=== PATIENT | male | born 1950 | race Caucasian/White ===

== ENCOUNTER 2018-07-18 05:26 | Inpatient (IN) | payer OTHER ==
[2018-07-03 12:44] LABS: HEMATOCRIT 44.2 % (42.0-52.0); HEMOGLOBIN 15.6 gm/dL (14.0-18.0); MCH 30.3 pg (26.0-34.0); MCHC 35.3 g/dL (28.0-37.0); MCV 85.8 fL (80.0-100.0); RBC 5.15 mil/uL (4.50-6.00); WBC 7.4 thou/uL (4.0-11.0)
[2018-07-03 12:45] LABS: URINE BILIRUBIN NEGATIVE (Negative); URINE BLOOD 1+ (Negative); URINE CLARITY CLEAR; URINE COLOR YELLOW; URINE GLUCOSE-RANDOM* NEGATIVE (Negative); URINE KETONES NEGATIVE (Negative); URINE LEUKOCYTES-REFLEX NEGATIVE (Negative); URINE NITRITE-REFLEX NEGATIVE (Negative); URINE PROTEIN (DIPSTICK) 1+ (Negative); URINE SPECIFIC GRAVITY >= 1.030 (1.005-1.035); URINE UROBILINOGEN 0.2 E.U./dl (0.2-1.0)
[2018-07-03 12:58] LABS: PROTIME 10.7 Seconds (9.3-11.4)
[2018-07-03 13:04] LABS: BACTERIA-REFLEX 1-9 Few /HPF (None Seen); CASTS None Seen /LPF (None Seen); CRYSTALS None Seen /LPF (None Seen); SQUAMOUS 0-3 Few /LPF (0-3); URINE RBC None Seen /HPF (0-2); URINE WBC-REFLEX None Seen /HPF (0-5)
[2018-07-03 13:05] LABS: ALBUMIN 4.2 g/dL (3.4-5.0); CALCIUM 9.9 mg/dL (8.5-10.1); CREATININE 1.5 mg/dL (0.7-1.3); POTASSIUM 4.2 mmol/L (3.5-5.1); TOTAL BILIRUBIN 1.4 mg/dL (<0.1-1.0); TOTAL PROTEIN 7.7 g/dL (6.4-8.2)
[2018-07-04 03:10] LABS: GLYCOHEMOGLOBIN (HGB A1C) 7.9 % (4.8-5.6)
[~2018-07-18] VITALS: Ht 175.3 cm; Wt 99.3 kg
[2018-07-18] VITALS (7 sets, daily range): BP systolic 118–158; BP diastolic 63–77
--- NOTE | ~2018-07-18 | O ---
[facility] [place] [address] OPERATIVE REPORT Name: FERNANDA SALTER Room #: 462-P ADM IN M.R.#: [id number] Admission: 07/18/18 Attend Phys: Sloan Taylor MD Discharge: Date of : 52 Report #: [id number] THIS REPORT FOR: //name// CC: Sloan Souza DATE OF SERVICE: 07/18/2018 PREOPERATIVE DIAGNOSIS: Right knee osteoarthritis. POSTOPERATIVE DIAGNOSIS: Right knee osteoarthritis. PROCEDURE: Right total knee arthroplasty with Navio assist. SURGEON: Sloan Taylor M.D. ANESTHESIA: LMA with an adductor canal block. IMPLANTS: Quesada and Nephew size 7 Legion cobalt chrome posterior stabilized femur, size 6 tibia, size 10 polyethylene and size 38 patella. TOURNIQUET TIME: 63 minutes. ESTIMATED BLOOD LOSS: 25 mL. COMPLICATIONS: None. SPECIMENS: None. CONDITION UPON LEAVING THE OPERATING ROOM: Stable. INDICATIONS FOR PROCEDURE: The patient is a 67-year-old gentleman with severe right knee osteoarthritis. He had failed conservative measures for this and after discussion with him, he elected for right total knee arthroplasty. DESCRIPTION OF PROCEDURE: Risks, benefits, alternatives and complications were discussed in detail with the patient, including but not limited to risk of anesthesia; risk of damage to nerves, arteries, blood vessels; risk for infection, bleeding; risk for continued knee pain and need for reoperation. Informed consent was obtained from the patient. Right knee was appropriately marked in the preoperative holding area. IV Ancef was given for preoperative antibiotics. Adductor canal block was placed by anesthesia. He was brought to the operating room and placed in the supine position on the operating room table. LMA anesthesia was induced without complication. Tourniquet was placed on the right thigh. Right lower extremity was prepped and [facility] [address] [place] [address] OPERATIVE REPORT Name: FERNANDA SALTER Room #: 462-P [facility] IN M.R.#: [id number] Admission: 07/18/18 Attend Phys: Sloan Taylor MD Discharge: Date of : 51 Report #: [id number] draped in normal sterile fashion. Timeout was performed, properly identifying the patient and procedure as well as the instrumentation and implants. All in the operating room were in agreement. Right lower extremity was exsanguinated, tourniquet was inflated. Tourniquet time was 63 minutes. Standard midline approach to the knee was made with 10 blade through the skin. Dissection was taken down sharply to the fascia and deep flaps were developed medially and laterally. Fresh 10 blade was used to make a medial parapatellar arthrotomy and the knee was inspected. There was severe tricompartmental osteoarthritis with chondrocalcinosis of the medial and lateral meniscus. Anterior horns of the meniscus removed sharply. ACL and PCL were removed sharply. Reference pins were placed in the femur and tibia for the Navio system and the knee was then mapped digitally using the Navio system. We sized a size 7 femur and a size 6 tibia and after acceptance of the intraoperative plan, we proceeded to perform the distal femoral cut using the Navio bur. After this, a size 7, 4-in-1 cutting block was placed. Anterior, posterior and chamfer cuts were made on the femur. The knee was then hyperflexed. Tibia was subluxed anteriorly. Remainder of the menisci removed with Bovie cautery and the tibial resection guide was pinned in place using the Navio physical therapist assistant navigation for placement of the tibial resection guide. Tibial resection was made. After this, flexion and extension gaps were checked and found to have good balance in flexion and extension both medially and laterally. Tibia was sized and found to be a size 6. A size 6 tibial trial was placed and pinned and punched. A size 7 femoral trial was placed and the box cut was made. This was then trialed with a size 9 and then size 10 polyethylene. The size 10 had better balance throughout range of motion based on the Navio digital information as well as manually. A 9 mm was taken off the posterior surface of the patella and a size 38 patellar trial button was placed. Knee was taken through range of motion, found to be stable, found to have good patellar tracking and balance. Trial components were removed. Bone ends were thoroughly irrigated with normal saline. A final size 6 tibia, size 7 Legion cobalt chrome posterior stabilized femur and a size 38 patella were cemented in place using standard cementation techniques. While the cement cured, a fredo-articular injection consisting of morphine, ropivacaine, epinephrine and Toradol was placed in the knee joint tissues. After the cement cured, the tourniquet was deflated. Hemostasis was obtained with Bovie cautery. A final size 10 polyethylene was placed. A gram of vancomycin was placed deep in the joint. Fascia was closed with 0 Vicryl, skin was closed with 2-0 Vicryl and 3-0 Monocryl. Dermabond and a YANETH dressing were applied. The patient tolerated this procedure well and went to the recovery room under the care of anesthesia postoperatively. <ELECTRONICALLY SIGNED> By: Sloan Taylor MD 07/19/18 1306 1202 1237 Sloan Taylor MD /nt
--- NOTE | ~2018-07-18 | EKG ---
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
[~2018-07-18 05:26] MED LIST: ADULT LOW DOSE81 MG PO; ASPIR 8181 MG PO; ASPIRIN EC325 M1 PO; ASPIRIN EC81 M1 PO; ASPIRIN325 PO; ASPIRIN81 M2 PO; AUGMENTIN 875875 MG PO; CARDIZEM CD120 MG PO; CARVEDILOL12.5 MG PO; CARVEDILOL25 MG PO; CLONIDINE PO; CO Q-10100 M1 PO; COLACE100 MG PO; COREG25 MG PO; CRESTOR10 MG PO; CRESTOR20 MG PO; CYCLOBENZAPRINE5 MG PO; EFFIENT10 MG PO; GLUCOTROL5 MG PO; HYDROCODON-ACE1 EAC7 PO; HYDROCODONE-AP1 EACH PO; IMDUR 30 MG TAB30 M1 PO; IMDUR 60 MG TAB60 M1 PO; JANUVIA50 MG PO; LEXAPRO 10 MG T10 M1 PO; LEXAPRO 10 MG T10 M2 PO; LIDODERM 5%1 PATCH TOP; LIPITOR80 MG PO; LISINOPRIL-HCT1 EAC1 PO; LISINOPRIL-HCT1 EAC2 PO; LISINOPRIL2.5 MG PO; LISINOPRIL20 MG PO; LOPERAMIDE 2 MG2 MG; METOPROLOL 100100 MG PO; MIRALAX255 GM PO; MOBIC15 MG PO; MYRBETRIQ50 MG PO; NIACOR500 MG PO; NITROGLYCERIN0.4 MG SL; NITROGLYCERIN0.4 MG SUBLING; NORCO 5-325 TA1 EACH PO; NORVASC 5 MG TAB5 MG PO; NORVASC5 MG PO; OXYCODONE HCL 55 MG PO; PERCOCET 5-3251 EACH PO; PHISOHEX148 ML TP; SIMVASTATIN80 MG PO; TYLENOL325 MG PO; ULTRAM 50MG TAB50 MG PO; VENTOLIN HFA INH8 GM INH; WELCHOL 625 MG625 MG PO; ZOFRAN ODT4 MG PO
[2018-07-19 04:53] LABS: HEMATOCRIT 36.5 % (42.0-52.0); HEMOGLOBIN 12.3 gm/dL (14.0-18.0); MCH 29.4 pg (26.0-34.0); MCHC 33.6 g/dL (28.0-37.0); MCV 87.6 fL (80.0-100.0); RBC 4.17 mil/uL (4.50-6.00); WBC 8.6 thou/uL (4.0-11.0)
[2018-07-19 07:39] VITALS: BP 105/58
[2018-07-19] MEDS ORDERED: TRI-BUFFERED A325 M1 PO (10:16)
[2018-07-19] MEDS ORDERED: NEURONTIN 300300 M1 PO (10:16)
[2018-07-19 16:31] VITALS: BP 113/60
[2018-07-19 20:00] VITALS: BP 138/73
[2018-07-20 06:58] LABS: HEMATOCRIT 38.5 % (42.0-52.0); HEMOGLOBIN 13.2 gm/dL (14.0-18.0); MCHC 34.3 g/dL (28.0-37.0); MCV 87.4 fL (80.0-100.0); RBC 4.41 mil/uL (4.50-6.00); RDW 14.7 % (10.5-14.5); WBC 10.2 thou/uL (4.0-11.0)
[2018-07-20 07:45] VITALS: BP 165/77
[2018-07-20 10:08] LABS: CALCIUM 8.9 mg/dL (8.5-10.1); CREATININE 1.6 mg/dL (0.7-1.3); MAGNESIUM 1.9 mg/dL (1.8-2.4); POTASSIUM 4.7 mmol/L (3.5-5.1)
[2018-07-20 16:50] VITALS: BP 107/50
[2018-07-20 19:52] VITALS: BP 104/49
[2018-07-21 06:34] LABS: HEMOGLOBIN 12.1 gm/dL (14.0-18.0); MCH 30.2 pg (26.0-34.0); MCHC 34.5 g/dL (28.0-37.0); MCV 87.6 fL (80.0-100.0); RBC 3.99 mil/uL (4.50-6.00); RDW 14.9 % (10.5-14.5); WBC 8.1 thou/uL (4.0-11.0)
[2018-07-21 06:47] LABS: CALCIUM 9.1 mg/dL (8.5-10.1); CREATININE 1.8 mg/dL (0.7-1.3); MAGNESIUM 2.1 mg/dL (1.8-2.4); POTASSIUM 4.4 mmol/L (3.5-5.1)
[2018-07-21 07:55] VITALS: BP 130/77
[2018-07-21 10:43] VITALS: BP 130/77
[2018-07-21 19:44] VITALS: BP 127/72
[2018-07-22 01:13] VITALS: BP 127/72
[2018-07-22 05:29] LABS: HEMATOCRIT 32.9 % (42.0-52.0); HEMOGLOBIN 11.7 gm/dL (14.0-18.0); MCH 30.7 pg (26.0-34.0); MCHC 35.5 g/dL (28.0-37.0); MCV 86.4 fL (80.0-100.0); RBC 3.81 mil/uL (4.50-6.00); RDW 14.1 % (10.5-14.5); WBC 7.8 thou/uL (4.0-11.0)
[2018-07-22 05:43] LABS: CALCIUM 8.8 mg/dL (8.5-10.1); CREATININE 1.6 mg/dL (0.7-1.3); MAGNESIUM 2.1 mg/dL (1.8-2.4); POTASSIUM 4.2 mmol/L (3.5-5.1)
[2018-07-22 08:08] VITALS: BP 139/72
[2018-07-22] MEDS ORDERED: VISTARIL 25 MG25 M1 PO (15:12)
== END 2018-07-22 15:40 | DRG 469 ==
LOC: 4W 05:26 → TBA 05:26 → PRE 05:38 → 4W 18:03
PROVIDERS: Internal Medicine; Orthopaedic Surgery
PROC: 0SRC0J9 Replacement of Right Knee Joint with Synthetic Substitute, Cemented, Open Approach (ICD-10-PCS; principal; 2018-07-18)
DX: M17.11 Unilateral primary osteoarthritis, right knee (principal); N17.0 Acute kidney failure with tubular necrosis; F32.9 Major depressive disorder, single episode, unspecified; N18.3 Chronic kidney disease, stage 3 (moderate); I12.9 Hypertensive chronic kidney disease with stage 1 through stage 4 chronic kidney disease, or unspecified chronic kidney disease; E11.22 Type 2 diabetes mellitus with diabetic chronic kidney disease; K59.00 Constipation, unspecified; E78.5 Hyperlipidemia, unspecified; Z79.82 Long term (current) use of aspirin; Z28.21 Immunization not carried out because of patient refusal; Z79.899 Other long term (current) drug therapy; Z88.2 Allergy status to sulfonamides; Z88.8 Allergy status to other drugs, medicaments and biological substances; Z82.49 Family history of ischemic heart disease and other diseases of the circulatory system; Z80.42 Family history of malignant neoplasm of prostate; Z83.3 Family history of diabetes mellitus
CPT/HCPCS: 10047; 50010; 50101; 50415; 50954; 51130; 51225; 51771; 53000; 53078; 53364; 54118; 56527; 56528; 57095; 57103; 57109; 57110; 57113; 57127; 57180; 62110; 62900; 70005

== ENCOUNTER 2018-08-23 13:03 | Emergency (ER) | payer OTHER ==
[~2018-08-23] VITALS: Ht 175.3 cm; Wt 79.4 kg
--- NOTE | ~2018-08-23 | EKG ---
[address] [address] ELECTROCARDIOGRAM REPORT Name: FERNANDA SALTER Room #: DEP Jenna#: [id number] Admission: 08/23/18 Attend Phys: Discharge: 08/23/18 Date of : 52 Report #: [id number] THIS REPORT FOR: //name// [facility] ED Test Date: 2018-08-23 Test Time: 13:18:07 Pat Name: FERNANDA SALTER Department: Room: Gender: Exhaust Tender: : 1950 Requested By: Samaria Hyman Order Number: [id number] MD: Michael Harris Measurements Intervals [place] Rate: 57 P: NM: QRS: 22 QRSD: 94 T: 210 QT: 448 QTc: 437 Interpretive Statements Sinus rhythm First degree AV block Electronically Signed On 08-25-2018 20:17:54 CATERING STAFF MEMBER by Michael Harris [email or web address] <ELECTRONICALLY SIGNED> By: Michael Harris MD 08/25/182016 1318 1318 Michael Harris MD /EPI
[~2018-08-23 13:03] MED LIST changes: +NEURONTIN 300300 M1 PO; +TRI-BUFFERED A325 M1 PO; +VISTARIL 25 MG25 M1 PO
[2018-08-23 13:53] LABS: ABSOLUTE NEUTROPHILS 6.5 thou/uL (1.4-8.2); EOSINOPHILS 2.8 % (0.0-3.0); HEMATOCRIT 36.3 % (42.0-52.0); HEMOGLOBIN 12.4 gm/dL (14.0-18.0); LYMPHOCYTES 13.8 % (24.0-44.0); MCH 28.9 pg (26.0-34.0); MCHC 34.2 g/dL (28.0-37.0); MCV 84.7 fL (80.0-100.0); MONOCYTES 4.5 % (1.0-8.0); PLATELET COUNT 209 thou/uL (150-400); POLYS 77.9 % (36.0-66.0); RBC 4.29 mil/uL (4.50-6.00); RDW 14.2 % (10.5-14.5); WBC 8.4 thou/uL (4.0-11.0)
[2018-08-23 13:59] LABS: ANION GAP 12 mmol/L (7-16); BUN 61 mg/dL (7-18); CALCIUM 9.4 mg/dL (8.5-10.1); CHLORIDE 107 mmol/L (98-107); CO2 19 mmol/L (21-32); CREATININE 2.5 mg/dL (0.7-1.3); GLUCOSE 176 mg/dL (74-106); POTASSIUM 4.8 mmol/L (3.5-5.1); SODIUM 138 mmol/L (136-145)
[2018-08-23 14:08] LABS: ALBUMIN 3.8 g/dL (3.4-5.0); SGOT 18 U/L (15-37); SGPT 25 U/L (30-65); TOTAL BILIRUBIN 1.3 mg/dL (<0.1-1.0); TOTAL PROTEIN 7.7 g/dL (6.4-8.2); TROPONIN-I <0.06 ng/mL (<0.06)
[2018-08-23] MEDS ORDERED: NORCO 5-325 TA1 EACH PO (15:05)
[2018-08-23 16:03] VITALS: BP 115/56
== END 2018-08-23 16:05 | disposition home or self-care (01) ==
LOC: ER 13:03
PROVIDERS: Physician Assistant
DX: M25.561 Pain in right knee (principal); R42 Dizziness and giddiness; I12.9 Hypertensive chronic kidney disease with stage 1 through stage 4 chronic kidney disease, or unspecified chronic kidney disease; N18.3 Chronic kidney disease, stage 3 (moderate); G47.30 Sleep apnea, unspecified; E78.5 Hyperlipidemia, unspecified; F32.9 Major depressive disorder, single episode, unspecified; E11.22 Type 2 diabetes mellitus with diabetic chronic kidney disease; I25.10 Atherosclerotic heart disease of native coronary artery without angina pectoris; Z90.49 Acquired absence of other specified parts of digestive tract; Z88.8 Allergy status to other drugs, medicaments and biological substances; Z88.2 Allergy status to sulfonamides; Z95.5 Presence of coronary angioplasty implant and graft; Z85.46 Personal history of malignant neoplasm of prostate; Z90.79 Acquired absence of other genital organ(s); Z90.5 Acquired absence of kidney; Z96.651 Presence of right artificial knee joint; W18.39XA Other fall on same level, initial encounter; Y92.009 Unspecified place in unspecified non-institutional (private) residence as the place of occurrence of the external cause; Y93.89 Activity, other specified; Y99.8 Other external cause status

== ENCOUNTER → 2019-08-14 | Outpatient (CLI) | payer OTHER | LOC: NUC 08:49 | DX: I25.10 Atherosclerotic heart disease of native coronary artery without angina pectoris (principal); E78.5 Hyperlipidemia, unspecified; I10 Essential (primary) hypertension; E11.9 Type 2 diabetes mellitus without complications; Z88.2 Allergy status to sulfonamides; Z79.899 Other long term (current) drug therapy ==

== ENCOUNTER → 2019-11-28 | Outpatient (CLI) | payer OTHER ==
[~2019-11-28] VITALS: Ht 175.3 cm; Wt 92.1 kg
[~2019-11-28] MED LIST changes: +CRESTOR40 MG PO
--- NOTE | 2019-11-28 17:51 | P ---
[facility] [place] [address] PROCEDURE REPORT Name: FERNANDA SALTER Room #: REG [facility].#: [id number] Admission: 11/28/19 Attend Phys: Jeff Reyna MD Discharge: Date of : 51 Report #: [id number] THIS REPORT FOR: cc: Herbert Souza,Jeff Trent MD ~ CC: Jeff Souza MD OUTPATIENT COLONOSCOPY BRIEF HISTORY: The patient is a 69-year-old male with previous colonoscopies and had a lifetime adenoma count of 10. He presents for high risk screening colonoscopy due to history of multiple adenomas. PREOPERATIVE DIAGNOSIS: High risk screening colonoscopy. POSTOPERATIVE DIAGNOSES: Multiple colon polyps. MEDICATIONS: Deep sedation with propofol per anesthesia. SPECIMENS: 1. Polyp from 70 cm. 2. Polyp from 50 cm. 3. Polyp from 40 cm. 4. Polyp from 20 cm. ESTIMATED BLOOD LOSS: 3 mL. PROCEDURE: Colonoscopy to cecum and terminal ileum with snare polypectomy. FINDINGS: Prior to propofol sedation, procedure of colonoscopy discussed with the patient as well as potential risks and its complications. He indicates he understands and desires to proceed. DESCRIPTION OF PROCEDURE: With the patient in left lateral decubitus position, digital examination was completed, which revealed no abnormalities. Subsequently, the Olympus video colonoscope was introduced in the rectum, advanced under direct vision to the cecum too. Done with minimal difficulty. There was some coating of the proximal colon and some pooling of bilious material. We irrigated with simethicone and irrigated with the scope as well as extensive suctioning. Overall, reasonably good prep was obtained with these maneuvers. The distal terminal ileum was unremarkable. The scope was carefully withdrawn and careful circumferential views were obtained. The mucosa was within normal limits, normal vascular pattern, and normal light reflex. As we withdrew the scope, a diminutive polyp was seen and removed with a cold snare at [facility] [address] [place] [address] PROCEDURE REPORT Name: FERNANDA SALTER Room #: REG [facility]#: [id number] Admission: 11/28/19 Attend Phys: Jeff Reyna MD Discharge: Date of : 52 Report #: [id number] 70 cm. A larger polyp was seen and removed by cold snare polypectomy at 50 cm. The polyp was flat and about 4 x 4 mm. Another flat polyp of similar size was seen and removed by cold snare polypectomy at 40 cm. The scope was further withdrawn and at 20 cm, a 1 cm polyp was seen on a broad stalk and removed by hot snare polypectomy. There was good hemostasis. The scope was further withdrawn and no additional neoplastic lesions were seen. Scope was withdrawn in the rectum. No abnormalities were seen. Upon retroflexion, no abnormalities were seen. Scope was withdrawn. The patient tolerated the procedure well. CONDITION OF THE PATIENT UPON DISCHARGE: Following procedure, the patient was drowsy, arousable, and conversant and will be discharged to home when fully ambulatory. INSTRUCTIONS TO THE PATIENT AND FAMILY AT THE TIME OF DISCHARGE: Four polyps identified and removed as noted above. We will follow up on the pathology. If 3 or more polyps are adenomas, he should return in 3 years; otherwise, he is to return for followup colonoscopy in 5 years. <ELECTRONICALLY SIGNED> By: Jeff Reyna MD 11/28/19 1751 1135 1144 Jeff Reyna MD /nt
--- NOTE | 2019-12-01 17:07 | PATH ---
[facility] [place] [address] PATHOLOGY RPT PROCEDURE Name: FERNANDA SPRINGER Room #: REG [facility].#: [id number] Admission: 11/28/19 Date of : 52 Discharge: Report #: [id number] Path Case #: [id number] [facility] Accession Number: [id number] . 01 Material submitted: . PART A: colon - POLYP AT 70CM PART B: colon - POLYP AT 50CM PART C: colon - POLYP AT 40CM PART D: colon - POLYP AT 20CM . 01 Clinical history: . History of polyps. . 02 Diagnosis: A. Polyp, at 70 cm, endoscopic biopsy: - Tubular adenoma. - Negative for high-grade dysplasia. . B. Polyp, at 50 cm, endoscopic biopsy: - Tubular adenoma. - Negative for high-grade dysplasia. . C. Polyp, at 40 cm, endoscopic biopsy: - Tubular adenoma, minute. - Negative for high-grade dysplasia. . D. Polyp, at 20 cm, endoscopic biopsy: - Tubular adenoma. - Negative for high-grade dysplasia. - Cauterized margin showing unremarkable mucosa. . 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 02 Electronically signed: . Ernestina Alfaro MD, Pathologist NPI- [id number] . 01 Gross description: . A. Received in formalin labeled "Fernanda Springer, polyp at 70 cm" is a 0.6 x 0.4 x 0.1 cm fragment of carrion-brown soft tissue. The specimen is submitted entirely in A1. . B. Received in formalin labeled "Fernanda Springer, polyp at 50 cm" is a 0.7 x 0.4 x 0.1 cm aggregate of carrion-brown soft tissue fragments. The specimen is submitted entirely [place] [address] PATHOLOGY RPT PROCEDURE Name: FERNANDA SPRINGER STEPHEN [facility] [id number] Admission: 11/28/19 Date of : 52 Discharge: Report #: [id number] Path Case #: [id number] C. Received in formalin labeled "Fernanda Springer, polyp at 40 cm" is a 0.9 x 0.5 x 0.2 cm aggregate of carrion-brown soft tissue fragments. The specimen is submitted entirely in C1. . D. Received in formalin labeled "Racheal, Fernanda, polyp at 20 cm" is a 0.8 x 0.7 x 0.5 cm carrion-brown nodular mucosal polyp, and a 0.5 x 0.3 x 0.1 cm aggregate of smaller mucosal fragments. The polyp margin is inked and the polyp is serially sectioned and submitted in D1. The smaller fragments are submitted in D2. ([facility]; 11/30/2019) [facility] 11/30/2019 [facility] Local . 02 Pathologist provided ICD-10: D12.6 . 02 CPT . 438165, 359825, 469158, 647223 Specimen Comment: A courtesy copy of this report has been sent to [phone] Specimen Comment: Report sent to DR ECHEVERRIA Performed at: [address], [place] [id number] MD Phoenix Cabrera MD Phone: [phone] Performed at: [address] [id number] MD Ernestina Alfaro MD Phone: [phone]
== END | disposition home or self-care (01) ==
LOC: GI 08:57
DX: Z12.11 Encounter for screening for malignant neoplasm of colon (principal); Z86.010 Personal history of colon polyps; D12.4 Benign neoplasm of descending colon; D12.5 Benign neoplasm of sigmoid colon; I12.9 Hypertensive chronic kidney disease with stage 1 through stage 4 chronic kidney disease, or unspecified chronic kidney disease; E11.22 Type 2 diabetes mellitus with diabetic chronic kidney disease; N18.3 Chronic kidney disease, stage 3 (moderate); I25.2 Old myocardial infarction; E78.5 Hyperlipidemia, unspecified; F41.9 Anxiety disorder, unspecified; G47.30 Sleep apnea, unspecified; F32.9 Major depressive disorder, single episode, unspecified; M19.90 Unspecified osteoarthritis, unspecified site; Z98.890 Other specified postprocedural states; Z79.899 Other long term (current) drug therapy; Z85.528 Personal history of other malignant neoplasm of kidney; Z85.46 Personal history of malignant neoplasm of prostate; Z95.1 Presence of aortocoronary bypass graft; Z90.5 Acquired absence of kidney; Z90.49 Acquired absence of other specified parts of digestive tract; Z88.2 Allergy status to sulfonamides; Z88.8 Allergy status to other drugs, medicaments and biological substances; Z79.82 Long term (current) use of aspirin
CPT/HCPCS: 62110; 62900

== ENCOUNTER → 2019-12-10 | Outpatient (CLI) | payer OTHER | LOC: SJCVC 13:37 | DX: I44.0 Atrioventricular block, first degree (principal); R94.31 Abnormal electrocardiogram [ECG] [EKG]; I25.10 Atherosclerotic heart disease of native coronary artery without angina pectoris; I10 Essential (primary) hypertension; E78.00 Pure hypercholesterolemia, unspecified; E11.9 Type 2 diabetes mellitus without complications; K21.9 Gastro-esophageal reflux disease without esophagitis; I25.2 Old myocardial infarction; Z96.653 Presence of artificial knee joint, bilateral; Z79.899 Other long term (current) drug therapy ==

== ENCOUNTER → 2020-03-30 | Outpatient (CLI) | payer OTHER | LOC: NUC 09:24 → EDSTATUS 09:25 | PROVIDERS: ATTEND Orthopaedic Surgery | DX: Z96.651 Presence of right artificial knee joint (principal) ==

== ENCOUNTER → 2020-06-11 | Outpatient (CLI) | payer OTHER | LOC: SJCVCIMAG 08:32 | PROVIDERS: ATTEND Internal Medicine Cardiovascular Disease | DX: I08.0 Rheumatic disorders of both mitral and aortic valves (principal); R94.31 Abnormal electrocardiogram [ECG] [EKG]; I44.0 Atrioventricular block, first degree; I25.10 Atherosclerotic heart disease of native coronary artery without angina pectoris; I25.2 Old myocardial infarction; I10 Essential (primary) hypertension; E78.00 Pure hypercholesterolemia, unspecified; Z95.1 Presence of aortocoronary bypass graft; Z95.5 Presence of coronary angioplasty implant and graft; Z79.899 Other long term (current) drug therapy ==

== ENCOUNTER → 2021-01-05 | Outpatient (CLI) | payer OTHER ==
[~2021-01-05] MED LIST changes: +ASA81BEC PO; +SOLIFENACIN SUC10 MG PO; +TRAMADOL 50 MG50 MG PO
== END ==
LOC: SJCVC 10:28
PROVIDERS: ATTEND Internal Medicine Cardiovascular Disease
DX: R94.31 Abnormal electrocardiogram [ECG] [EKG] (principal); I44.0 Atrioventricular block, first degree; I10 Essential (primary) hypertension; I25.10 Atherosclerotic heart disease of native coronary artery without angina pectoris; E11.9 Type 2 diabetes mellitus without complications; R60.0 Localized edema; K21.9 Gastro-esophageal reflux disease without esophagitis; E78.5 Hyperlipidemia, unspecified; I25.2 Old myocardial infarction; G47.33 Obstructive sleep apnea (adult) (pediatric); Z72.89 Other problems related to lifestyle; Z79.82 Long term (current) use of aspirin; Z79.899 Other long term (current) drug therapy; Z95.1 Presence of aortocoronary bypass graft; Z88.2 Allergy status to sulfonamides; Z88.8 Allergy status to other drugs, medicaments and biological substances

== ENCOUNTER 2021-01-08 01:03 | Inpatient (IN) | payer OTHER ==
[~2021-01-08] VITALS: Ht 175.3 cm; Wt 86.2 kg
[2021-01-08] VITALS (7 sets, daily range): BP systolic 141–185; BP diastolic 70–101
[~2021-01-08 01:03] MED LIST changes: -ASA81BEC PO; -SOLIFENACIN SUC10 MG PO; -TRAMADOL 50 MG50 MG PO
[2021-01-08 01:33] LABS: ABSOLUTE NEUTROPHILS 3.5 thou/uL (1.4-8.2); BASOPHILS 0.6 % (0.0-2.0); EOSINOPHILS 2.7 % (0.0-3.0); HEMATOCRIT 41.7 % (42.0-52.0); HEMOGLOBIN 14.1 gm/dL (14.0-18.0); LYMPHOCYTES 27.6 % (24.0-44.0); MCH 28.8 pg (26.0-34.0); MCHC 33.9 g/dL (28.0-37.0); MCV 85.2 fL (80.0-100.0); MONOCYTES 8.5 % (1.0-8.0); PLATELET COUNT 206 thou/uL (150-400); POLYS 60.6 % (36.0-66.0); RDW 13.5 % (10.5-14.5); WBC 5.7 thou/uL (4.0-11.0)
[2021-01-08 01:35] LABS: ANION GAP 10 mmol/L (7-16); BUN 25 mg/dL (7-18); CALCIUM 8.5 mg/dL (8.5-10.1); CHLORIDE 106 mmol/L (98-107); CO2 29 mmol/L (21-32); CREATININE 1.7 mg/dL (0.7-1.3); GLUCOSE 223 mg/dL (74-106); POTASSIUM 4.1 mmol/L (3.5-5.1); SODIUM 145 mmol/L (136-145)
[2021-01-08 01:46] LABS: ALBUMIN 3.5 g/dL (3.4-5.0); AMYLASE 92 U/L (25-115); DIRECT BILIRUBIN 0.2 mg/dL (<0.1-0.2); LIPASE 520 U/L (73-393); MAGNESIUM 1.6 mg/dL (1.8-2.4); PHOSPHORUS 3.5 mg/dL (2.6-4.7); SGOT 16 U/L (15-37); SGPT 22 U/L (16-63); TOTAL BILIRUBIN 1.1 mg/dL (0.2-1.0); TOTAL PROTEIN 7.1 g/dL (6.4-8.2); TROPONIN-I <0.06 ng/mL (<0.06)
[2021-01-08] MEDS ORDERED: ASA81BEC PO (03:20)
[2021-01-08] MEDS ORDERED: TRAMADOL 50 MG50 MG PO (03:21)
[2021-01-08] MEDS ORDERED: SOLIFENACIN SUC10 MG PO (03:22)
[2021-01-08 04:50] LABS: CHOLESTEROL 188 mg/dL (<200); HDL CHOLESTEROL 24 mg/dL (>40); TC:HDL 7.8 Ratio (Not establshd); TRIGLYCERIDE 507 mg/dL (<150); VLDL 101 mg/dL (<40)
[2021-01-08 04:51] LABS: SERUM ASSESSMENT Slight Lipemia
--- NOTE | 2021-01-08 05:05 | NUR ---
ASSUME CARE 0430 FROM ED STAFF. PT STABLE. DENIES ANY CHEST PAIN AT THIS TIME. TOLERATE ACTIVITY WELL. ASSESSMENT CHARTED. NO DISTRESS NOTED. SR ON MONITOR. PT INDICATES HIS IS HOME SICK AND BY HERSELF AD IS WORRIED. WANTS TO GO HOME SO HE CAN TAKE CARE OF HER. BP RUNS HIGH. PLAN IS TO CONTINUE WITH TROPONIN AND DO VQ SCAN TO RULE OUT PE. WILL CONTINUE TO MONITOR AND FOLLOW WITH POC
--- NOTE | 2021-01-08 17:58 | NUR ---
ASSUMED CARE SHIFT CHANGE. VSS. C/O CHEST PAIN THIS AM CARDS NOTIFIED NITRO GIVEN PER ORDERS, PT TAKEN TO CPA TAX, NO INTERVENTION. R GROIN SITE CDI NO HEMATOMA. PT C/O PAIN IN BACK AND ABDOMEN AREA MORPHINE GIVEN X1 WITH RELIEF OBTAINED. O2 SATS WNL RA. DENIES EPISODES CP SINCE. CONTINUING POC. POSSIBLE DC TOMORROW. WILL PASS ON REPORT TO BOBBY JAFFE.
[2021-01-09 04:28] VITALS: BP 156/64
--- NOTE | 2021-01-09 05:04 | NUR ---
ALERT AND ORIENTEDX4, SR/1DAVB, DENIES CHEST PAIN OR SOB, RIGHT GROIN SITE CDI, NO HEMATOMA, ASSESSMENTS CHARTED, NO EVENTS, SLEPT WELL, WILL CONTINUE TO MONITOR, POSSIBLE DISCHARGE HOME TODAY
[2021-01-09 05:36] LABS: GLYCOHEMOGLOBIN (HGB A1C) 7.9 % (4.8-5.6)
[2021-01-09 07:18] VITALS: BP 122/55
[2021-01-09 08:00] VITALS: BP 122/55
[2021-01-09 08:34] LABS: CALCIUM 8.4 mg/dL (8.5-10.1); CREATININE 1.5 mg/dL (0.7-1.3); POTASSIUM 3.9 mmol/L (3.5-5.1)
--- NOTE | 2021-01-09 09:07 | 2DMMODE ---
[facility] [place] [address] 2 D/M-MODE ECHOCARDIOGRAM Name: FERNANDA SALTER Room #: 209-P ADM IN M.R.#: [id number] Admission: 01/08/21 Attend Phys: Devan Henriquez MD Discharge: Date of : 51 Report #: [id number] THIS REPORT FOR: cc: Herbert Souza,Carlos Velasco MD [facility] ~ APPROVED REPORT Study performed: 01/08/2021 09:14:39 EXAM: Comprehensive 2D, Doppler, and color-flow Echocardiogram Patient Location: In-Patient Room #: 209 Status: routine BSA: 2.02 HR: 75 bpm Rhythm: NSR Other Information Study Quality: Good Indications CAD Chest Pain 2D Dimensions RVDd: 29.98 mm IVSd: 16.34 (7-11mm) LVOT Diam: 21.64 (18-24mm) LVDd: 36.54 mm PWd: 13.59 (7-11mm) Ascending Ao: 41.10 (22-36mm) LVDs: 21.69 (25-40mm) Left Atrium: 43.69 (27-40mm) Aortic Root: 32.96 mm LV Single Plane 4CH: 43.53 % LV Single Plane 2CH: 43.24 % Volumes Left Atrial Volume (Systole) Single Plane 4CH: 51.30 mL Single Plane 2CH: 44.52 mL Aortic Valve AoV Peak Aram.: 1.44 m/s AO Peak Gr.: 8.24 mmHg [facility] [address] [address] 2 D/M-MODE ECHOCARDIOGRAM Name: FERNANDA SALTER Room #: 209-P [facility] IN M.R.#: [id number] Admission: 01/08/21 Attend Phys: Brooklyn Sprague Discharge: Date of : 52 Report #: [id number] AO Mean Gr.: 4.17 mmHg AO V2 Mean: 0.95 m/s AO V2 VTI: 33.15 cm AI Vmax: 3.73 m/s AI [place]: 2.06 m/s2 AI PHT: 526.03 ms Mitral Valve E/A Ratio: 1.1 MV Decel. Time: 167.62 ms MV E Max Aram.: 0.92 m/s MV A Aram.: 0.84 m/s MV PHT: 48.61 ms TDI E/Lateral E': 13.14 Lateral E' Aram.: 0.07 m/s Pulmonary Valve PV Peak Aram.: 1.03 m/s PV Peak Gr.: 4.27 mmHg Tricuspid Valve TR Peak Aram.: 2.22 m/s TR Peak Gr.: 19.73 mmHg Left Ventricle The left ventricle is normal size. Regional wall motion abnormalities are noted. Moderate concentric left ventricular hypertrophy. Left ventricular systolic function is mildly decreased. LVEF is 45-50%.inf wall hypokinetic Right Ventricle The right ventricle is normal size. There is normal right ventricular wall thickness. Right ventricular systolic function is grossly normal. Atria Left atrium is at the upper limits of normal. The interatrial septum is intact with no evidence for an atrial septal defect. The right atrium size is normal. Aortic Valve The aortic valve is normal in structure. Trace aortic regurgitation. There is no aortic valvular stenosis. Mitral Valve [facility] [address] [address] 2 D/M-MODE ECHOCARDIOGRAM Name: FERNANDA SALTER Room #: 209-P [facility] IN M.R.#: [id number] Admission: 01/08/21 Attend Phys: Brooklyn Sprague Discharge: Date of : 52 Report #: [id number] The mitral valve is normal in structure. Mild mitral regurgitation. No evidence of mitral valve stenosis. There is no evidence of mitral valve prolapse. Tricuspid Valve The tricuspid valve is normal in structure. There is no tricuspid valve stenosis. Trace tricuspid regurgitation. Estimated PAP 25 mmHg. Pulmonic Valve The pulmonary valve is normal in structure. Mild pulmonic regurgitation. Great Vessels The aortic root is normal in size. The ascending aorta is mildly dilated. IVC is normal in size and collapses >50% with inspiration. Pericardium There is no pericardial effusion. <Conclusion> The left ventricle is normal size. Moderate concentric left ventricular hypertrophy. Left ventricular systolic function is mildly decreased. LVEF is 45-50%.inf wall hypokinetic The right ventricle is normal size. Left atrium is at the upper limits of normal. The interatrial septum is intact with no evidence for an atrial septal defect. Trace aortic regurgitation. Mild mitral regurgitation. Trace tricuspid regurgitation. Estimated PAP 25 mmHg. The aortic root is normal in size. The ascending aorta is mildly dilated. There is no pericardial effusion. <ELECTRONICALLY SIGNED> By: Carlos Gannon MD, FACC 01/09/21906 6 6 Carlos Gannon MD, FACC /INF
[2021-01-09 11:09] VITALS: BP 142/68
[2021-01-09 11:23] VITALS: BP 142/68
[2021-01-09 11:40] VITALS: BP 142/68
--- NOTE | 2021-01-09 13:02 | NUR ---
PT CARE ASSUMED AT 0700. ASSESSMENTS CHARTED. MEDICATIONS CHARTED. LAC IV. SINUS RHYTHM 1ST DEG AV. URINAL. DAY TWO: RT GROIN; MYNX, NO INTERVENTIONS. PT DISCHARGED TO HOME. DISCHARGE PAPERWORK SIGNED. TELEMETRY D/C'D. IV D/C'D.
--- NOTE | 2021-01-10 07:19 | EKG ---
[address] [place] [address] ELECTROCARDIOGRAM REPORT Name: JOIEFERNANDA Room #: 209-[facility] IN M.R.#: [id number] Admission: 01/08/21 Attend Phys: Devan Henriquez MD Discharge: 01/09/21 Date of : 52 Report #: [id number] [facility] Test Date: 2021-01-08 Test Time: 07:47:42 Pat Name: FERNANDA SALTER Department: Room: 209 Gender: M Stand Up Comedian: CARMELA : 1950 Requested By: Divya Soto Order Number: [id number] MD: Karl Potter Measurements Intervals [place] Rate: 81 P: -42 [place]: 274 QRS: 31 QRSD: 91 T: 217 QT: 390 QTc: 453 Interpretive Statements Sinus rhythm Prolonged [place] interval Repol abnrm suggests ischemia, lateral leads Compared to ECG 01/08/2021 01:08:41 Possible ischemia now present Myocardial infarct finding no longer present Electronically Signed On 01-10-2021 7:19:34 CDT by Karl Potter [email or web address] <ELECTRONICALLY SIGNED> By: Karl Potter MD, [facility] 01/10/21718 6 Karl Potter MD, [facility] /EPI
--- NOTE | 2021-01-10 07:19 | EKG ---
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 : 1950 Requested By: Perez Schmitz Order Number: [id number] MD: Karl Potter Measurements Intervals [place] Rate: 65 P: 42 NC: 253 QRS: 12 QRSD: 97 T: 172 QT: 444 QTc: 462 Interpretive Statements Sinus rhythm Prolonged NC interval Anteroseptal infarct, old Nonspecific repol abnormality, lateral leads Compared to ECG 08/23/2018 13:18:07 Myocardial infarct finding now present Early repolarization now present Electronically Signed On 01-10-2021 7:19:05 CDT by Karl Potter [email or web address] <ELECTRONICALLY SIGNED> By: Karl Potter MD, FACC 01/10/21 0719 0108 0108 Karl Potter MD, [facility] /EPI
--- NOTE | 2021-01-10 12:35 | CATHLAB ---
[facility] [place] [address] INVASIVE PROCEDURE REPORT Name: FERNANDA SALTER Room #: 209-P DIS IN M.R.#: [id number] Admission: 01/08/21 Attend Phys: Devan Henriquez MD Discharge: 01/09/21 Date of : 52 Report #: [id number] THIS REPORT FOR: cc: Herbert Souza Steven F. DO Mancuso, Gerald M. MD [facility] ~ APPROVED REPORT Study performed: 01/08/2021 09:59:51 Patient Details Patient Status: In-Patient Room #: 209 The patient is a 70 year-old male Event Personnel Carlos Gannon Ticket Attendant, Kamala Patten RN RN, Karina Oliva RTR Anatoly Aquino Roberta Monitor Procedures Performed Art Access - R femoral artery* Left Heart Cath Coronaries, Bypass Grafts 0301925 LHCCORCABG Renal Bilateral Peripheral Angiography [id number] CVRENALBIL 14982 Initial Mod Sed Same Phys/QHP Gr5y 825090 84355 Mod Sed Same Phys/QHP Ea 713451 Hemostasis w/ Mynx Indication Chest pain Procedure Narrative The Right Groin^ was infiltrated with 1% Lidocaine subcutaneous anesthesia. A PINNACLE 6FR Sheath #[id number] sheath was inserted into the RFA^. Coronary angiography was performed using coronary diagnostic catheters. The right coronary system was accessed and visualized with a jr4 catheter. The left coronary system was accessed and visualized with a jl4 catheter. The left ventricle was accessed and visualized with a str pig catheter. Left ventriculogram was performed in 30 degree projection. The patient tolerated the procedure well and there were no complications associated with the procedure. There was no hematoma. Intraoperative Conscious Sedation Sedation start time: 1050 Case end Time: 1130 Fentanyl 50 mcg Versed 2 mg [facility] [place] [address] INVASIVE PROCEDURE REPORT Name: FERNANDA SALTER Room #: 209-P [facility] IN M.R.#: [id number] Admission: 01/08/21 Attend Phys: [place] Sprague Discharge: 01/09/21 Date of : 52 Report #: [id number] Fluoro Time: 4.41 minutes Dose: DAP 3481.50 cGycm2 399 mGy Contrast Type and Amount: Visipaque 70 ml Hemodynamics The aortic pressure is 184/65 mmHg with a mean of 41 mmHg. The left ventricular pressure is 188/15 mmHg with a mean of mmHg. The left ventricular end diastolic pressure is 36 mmHg. Conclusion #1. Normal left jugular size ejection fraction lower limits of normal EF 55% #2 left main mildly calcified giving rise to LAD and circumflex left main is short. #3 the LAD is moderately diseased and then essentially occluded in the mid vessel. #4 the CEVALLOS to LAD is intact this is filling the distal PDA via collateral branch. No occlusive disease #5 dominant right coronary occluded fills via collateral filling PDA street. #6 SVG to probable PDA occluded. #7 circumflex OM is nondominant moderate in distribution. First OM branch is occluded. Some collateral filling #8 last intervention had ostial circumflex and LAD stents placed these remain patent. The remainder of the anatomy is not significantly changed we will continue to treat this medically. <ELECTRONICALLY SIGNED> By: Carlos Gannon MD, FACC 01/10/21 1235 1235 1235 Carlos Gannon MD, FACC /INF
== END 2021-01-09 12:38 | disposition home or self-care (01) | DRG 286 ==
LOC: ER 01:03 → EROBS 03:42 → 2N 04:20
PROVIDERS: Emergency Medicine; Nurse Practitioner Adult Health; Nurse Practitioner Family; ADMIT Hospitalist; ATTEND Hospitalist
DX: I25.119 Atherosclerotic heart disease of native coronary artery with unspecified angina pectoris (principal); K85.80 Other acute pancreatitis without necrosis or infection; T82.898A Other specified complication of vascular prosthetic devices, implants and grafts, initial encounter; I12.9 Hypertensive chronic kidney disease with stage 1 through stage 4 chronic kidney disease, or unspecified chronic kidney disease; E11.22 Type 2 diabetes mellitus with diabetic chronic kidney disease; G47.33 Obstructive sleep apnea (adult) (pediatric); E78.5 Hyperlipidemia, unspecified; F32.9 Major depressive disorder, single episode, unspecified; F41.9 Anxiety disorder, unspecified; N18.30 Chronic kidney disease, stage 3 unspecified; Y83.8 Other surgical procedures as the cause of abnormal reaction of the patient, or of later complication, without mention of misadventure at the time of the procedure; Y92.89 Other specified places as the place of occurrence of the external cause; Z88.2 Allergy status to sulfonamides; Z95.5 Presence of coronary angioplasty implant and graft; Z95.0 Presence of cardiac pacemaker; Z85.528 Personal history of other malignant neoplasm of kidney; Z85.46 Personal history of malignant neoplasm of prostate; I25.2 Old myocardial infarction; Z90.49 Acquired absence of other specified parts of digestive tract; Z79.899 Other long term (current) drug therapy; Z79.84 Long term (current) use of oral hypoglycemic drugs; Z88.5 Allergy status to narcotic agent; Z88.8 Allergy status to other drugs, medicaments and biological substances
CPT/HCPCS: 10081

== ENCOUNTER → 2021-01-14 | Outpatient (CLI) | payer OTHER ==
[~2021-01-14] MED LIST changes: +ASA81BEC PO; +SOLIFENACIN SUC10 MG PO; +TRAMADOL 50 MG50 MG PO
== END ==
LOC: SJCVC 14:30
PROVIDERS: ATTEND Internal Medicine Cardiovascular Disease
DX: I25.10 Atherosclerotic heart disease of native coronary artery without angina pectoris (principal); I10 Essential (primary) hypertension; E78.00 Pure hypercholesterolemia, unspecified; R60.9 Edema, unspecified; R55 Syncope and collapse; D64.9 Anemia, unspecified; I24.9 Acute ischemic heart disease, unspecified; E11.9 Type 2 diabetes mellitus without complications; K21.9 Gastro-esophageal reflux disease without esophagitis; H91.90 Unspecified hearing loss, unspecified ear; E78.5 Hyperlipidemia, unspecified; I25.2 Old myocardial infarction; C64.9 Malignant neoplasm of unspecified kidney, except renal pelvis; G47.33 Obstructive sleep apnea (adult) (pediatric); Z88.2 Allergy status to sulfonamides; Z88.8 Allergy status to other drugs, medicaments and biological substances; Z79.84 Long term (current) use of oral hypoglycemic drugs; Z79.899 Other long term (current) drug therapy; Z72.89 Other problems related to lifestyle

== ENCOUNTER 2021-01-28 11:43 | Emergency (ER) | payer OTHER ==
[~2021-01-28] VITALS: Ht 175.3 cm; Wt 81.7 kg
[2021-01-28 12:49] LABS: ABSOLUTE NEUTROPHILS 6.2 thou/uL (1.4-8.2); BASOPHILS 0.9 % (0.0-2.0); EOSINOPHILS 1.9 % (0.0-3.0); HEMATOCRIT 45.5 % (42.0-52.0); HEMOGLOBIN 15.5 gm/dL (14.0-18.0); LYMPHOCYTES 14.5 % (24.0-44.0); MCH 28.7 pg (26.0-34.0); MCHC 34.1 g/dL (28.0-37.0); MCV 84.1 fL (80.0-100.0); MONOCYTES 6.2 % (1.0-8.0); PLATELET COUNT 255 thou/uL (150-400); POLYS 76.5 % (36.0-66.0); RBC 5.41 mil/uL (4.50-6.00); WBC 8.2 thou/uL (4.0-11.0)
[2021-01-28 13:01] LABS: AMP/METHAMP Negative (Negative); BARBITURATES Negative (Negative); BENZODIAZEPINES Negative (Negative); COCAINE Negative (Negative); METHADONE Negative (Negative); OPIATES Negative (Negative); PCP Negative (Negative)
[2021-01-28 13:15] LABS: ANION GAP 15 mmol/L (7-16); BUN 27 mg/dL (7-18); CALCIUM 9.4 mg/dL (8.5-10.1); CHLORIDE 104 mmol/L (98-107); CO2 21 mmol/L (21-32); CREATININE 1.6 mg/dL (0.7-1.3); GLUCOSE 258 mg/dL (74-106); POTASSIUM 3.4 mmol/L (3.5-5.1); SODIUM 140 mmol/L (136-145)
[2021-01-28 13:25] LABS: ALBUMIN 3.9 g/dL (3.4-5.0); DIRECT BILIRUBIN 0.3 mg/dL (<0.1-0.2); SALICYLATE < 2.8 mg/dL (2.8-20.0); SGOT 14 U/L (15-37); SGPT 19 U/L (16-63); TOTAL BILIRUBIN 2.2 mg/dL (0.2-1.0)
--- NOTE | 2021-01-28 17:12 | NUR ---
Discussed with ED staff patient status and [facility]'s need of the assessors affidavit on suicidal statements. Then spoke with [employer] store team member Miky who states he will have the magnetic observer complete this affidavit and fax to the [facility] at [phone] within 30 minutes. Notified Crude Oil Treater of this as well as ED HIGH DENSITY PRESS OPERATOR.
[2021-01-28 21:59] VITALS: BP 195/84
== END 2021-01-28 22:00 ==
LOC: ER 11:43
PROVIDERS: Nurse Practitioner
DX: R45.851 Suicidal ideations (principal); I25.2 Old myocardial infarction; E78.5 Hyperlipidemia, unspecified; E11.22 Type 2 diabetes mellitus with diabetic chronic kidney disease; I12.9 Hypertensive chronic kidney disease with stage 1 through stage 4 chronic kidney disease, or unspecified chronic kidney disease; N18.30 Chronic kidney disease, stage 3 unspecified; Z95.1 Presence of aortocoronary bypass graft; Z90.49 Acquired absence of other specified parts of digestive tract; Z79.82 Long term (current) use of aspirin; Z79.899 Other long term (current) drug therapy; Z88.2 Allergy status to sulfonamides; Z88.8 Allergy status to other drugs, medicaments and biological substances; Z20.822 Contact with and (suspected) exposure to COVID-19

== ENCOUNTER 2021-02-23 19:09 | Emergency (ER) | payer OTHER ==
[~2021-02-23] VITALS: Ht 175.3 cm; Wt 83.9 kg
[2021-02-23] MEDS ORDERED: ULTRAM 50MG TAB50 MG PO (20:16)
[2021-02-23 20:26] VITALS: BP 176/87
== END 2021-02-23 20:26 | disposition home or self-care (01) ==
LOC: ER 19:09
DX: G89.29 Other chronic pain (principal); M25.561 Pain in right knee; I25.2 Old myocardial infarction; I12.9 Hypertensive chronic kidney disease with stage 1 through stage 4 chronic kidney disease, or unspecified chronic kidney disease; E11.22 Type 2 diabetes mellitus with diabetic chronic kidney disease; N18.30 Chronic kidney disease, stage 3 unspecified; Z88.6 Allergy status to analgesic agent; Z88.5 Allergy status to narcotic agent; Z88.2 Allergy status to sulfonamides; Z79.82 Long term (current) use of aspirin; Z79.899 Other long term (current) drug therapy

== ENCOUNTER 2021-03-05 14:05 | Emergency (ER) | payer OTHER ==
[~2021-03-05] VITALS: Ht 175.3 cm; Wt 81.7 kg
[2021-03-05] MEDS ORDERED: ZANAFLEX4 MG PO (14:56)
[2021-03-05 15:16] LABS: CALCIUM 9.2 mg/dL (8.5-10.1); CREATININE 1.4 mg/dL (0.7-1.3); POTASSIUM 3.3 mmol/L (3.5-5.1)
[2021-03-05] MEDS ORDERED: POTASSIUM20 PO (15:32)
[2021-03-05 15:46] VITALS: BP 174/89
== END 2021-03-05 15:57 | disposition home or self-care (01) ==
LOC: ER 14:05
PROVIDERS: Nurse Practitioner
DX: M54.2 Cervicalgia (principal); M62.838 Other muscle spasm; I12.9 Hypertensive chronic kidney disease with stage 1 through stage 4 chronic kidney disease, or unspecified chronic kidney disease; E11.22 Type 2 diabetes mellitus with diabetic chronic kidney disease; N18.30 Chronic kidney disease, stage 3 unspecified; I25.2 Old myocardial infarction; Z88.6 Allergy status to analgesic agent; Z88.2 Allergy status to sulfonamides; Z88.5 Allergy status to narcotic agent; Z79.82 Long term (current) use of aspirin; Z79.899 Other long term (current) drug therapy; Z95.5 Presence of coronary angioplasty implant and graft; Z95.1 Presence of aortocoronary bypass graft

== ENCOUNTER 2021-03-07 13:43 | Emergency (ER) | payer OTHER ==
[~2021-03-07] VITALS: Ht 175.3 cm; Wt 81.7 kg
[~2021-03-07 13:43] MED LIST changes: +POTASSIUM20 PO; +ZANAFLEX4 MG PO
[2021-03-07 14:14] VITALS: BP 172/88
== END 2021-03-07 14:40 | disposition home or self-care (01) ==
LOC: ER 13:43
DX: E87.6 Hypokalemia (principal); M54.6 Pain in thoracic spine; M25.511 Pain in right shoulder; M54.2 Cervicalgia; I25.2 Old myocardial infarction; E78.5 Hyperlipidemia, unspecified; F32.9 Major depressive disorder, single episode, unspecified; F41.9 Anxiety disorder, unspecified; Z90.49 Acquired absence of other specified parts of digestive tract; I12.9 Hypertensive chronic kidney disease with stage 1 through stage 4 chronic kidney disease, or unspecified chronic kidney disease; E11.22 Type 2 diabetes mellitus with diabetic chronic kidney disease; N18.30 Chronic kidney disease, stage 3 unspecified; Z95.5 Presence of coronary angioplasty implant and graft; Z85.46 Personal history of malignant neoplasm of prostate; Z85.528 Personal history of other malignant neoplasm of kidney; Z98.890 Other specified postprocedural states; Z79.899 Other long term (current) drug therapy; Z79.82 Long term (current) use of aspirin; Z88.8 Allergy status to other drugs, medicaments and biological substances; Z88.2 Allergy status to sulfonamides; Z88.6 Allergy status to analgesic agent

== ENCOUNTER 2021-04-05 01:58 | Emergency (ER) | payer OTHER ==
[~2021-04-05] VITALS: Ht 170.2 cm; Wt 73.7 kg
[2021-04-05] MEDS ORDERED: FLONASE 0.05%50 MCG NARES (02:41)
[2021-04-05] MEDS ORDERED: LIPITOR 40 MG T40 M1 PO (02:44)
[2021-04-05 03:20] VITALS: BP 195/82
[2021-04-05] MEDS ORDERED: TRAMADOL 50 MG50 MG PO (03:26)
== END 2021-04-05 03:20 | disposition home or self-care (01) ==
LOC: ER 01:58
DX: S50.01XA Contusion of right elbow, initial encounter (principal); E78.5 Hyperlipidemia, unspecified; F32.9 Major depressive disorder, single episode, unspecified; E11.22 Type 2 diabetes mellitus with diabetic chronic kidney disease; I12.9 Hypertensive chronic kidney disease with stage 1 through stage 4 chronic kidney disease, or unspecified chronic kidney disease; N18.9 Chronic kidney disease, unspecified; I25.2 Old myocardial infarction; Z95.5 Presence of coronary angioplasty implant and graft; Z98.890 Other specified postprocedural states; Z90.49 Acquired absence of other specified parts of digestive tract; Z79.899 Other long term (current) drug therapy; Z79.82 Long term (current) use of aspirin; Z88.6 Allergy status to analgesic agent; Z88.2 Allergy status to sulfonamides; W06.XXXA Fall from bed, initial encounter; Y93.89 Activity, other specified; Y92.89 Other specified places as the place of occurrence of the external cause; Y99.8 Other external cause status

== ENCOUNTER 2021-08-28 21:24 | Emergency (ER) | payer OTHER ==
[~2021-08-28] VITALS: Ht 175.3 cm; Wt 73.5 kg
[~2021-08-28 21:24] MED LIST changes: +FLONASE 0.05%50 MCG NARES; +LIPITOR 40 MG T40 M1 PO
[2021-08-28] MEDS ORDERED: PERCOCET 5-3251 EACH PO (23:58)
[2021-08-29 01:04] VITALS: BP 177/105
== END 2021-08-29 01:04 | disposition home or self-care (01) ==
LOC: ER 21:24
DX: S42.121A Displaced fracture of acromial process, right shoulder, initial encounter for closed fracture (principal); S22.31XA Fracture of one rib, right side, initial encounter for closed fracture; E78.5 Hyperlipidemia, unspecified; F32.9 Major depressive disorder, single episode, unspecified; F41.9 Anxiety disorder, unspecified; I12.9 Hypertensive chronic kidney disease with stage 1 through stage 4 chronic kidney disease, or unspecified chronic kidney disease; E11.22 Type 2 diabetes mellitus with diabetic chronic kidney disease; N18.30 Chronic kidney disease, stage 3 unspecified; Z98.890 Other specified postprocedural states; Z90.49 Acquired absence of other specified parts of digestive tract; Z79.899 Other long term (current) drug therapy; Z88.2 Allergy status to sulfonamides; Z88.5 Allergy status to narcotic agent; Z88.6 Allergy status to analgesic agent; W10.8XXA Fall (on) (from) other stairs and steps, initial encounter; Y93.89 Activity, other specified; Y92.89 Other specified places as the place of occurrence of the external cause; Y99.8 Other external cause status

== ENCOUNTER 2021-10-21 07:23 | Inpatient (IN) | payer OTHER ==
[~2021-10-21] VITALS: Ht 177.8 cm; Wt 74.8 kg
--- NOTE | ~2021-10-21 | EMS ---
[address] [address] EMS Patient Care Report Name: FERNANDA SALTER Room #: 210-P [facility] IN [place].Fritz#: [id number] Admission: 10/21/21 Attend Phys: Bill Ponce MD Discharge: 10/23/21 Date of : 52 Report #: [id number] THIS REPORT FOR: //name// Report Transmitted: 10/25/2021 10:31 EMS Care Summary [place], [place]/[facility] Incident [id number] @ 10/21/2021 06:53 Incident Location [id number] [place], [place] [id number] Patient FERNANDA SALTER Male, 71 Years 1950 Patient Address [id number] [place], [place] [id number] Patient History Diabetes,Hypertension (HTN),Kidney Cancer,Prostate Cancer,Myocardial Infarction (TN), Patient Allergies Penicillin allergy,Sulfa,Bactrim,Sulfur allergy, Patient Medications Nitroglycerin, Lisinopril, Glipizide, Isosorbide, Diclofenac, Fluticasone, Myrbetriq, Carvedilol, Atorvastatin, Lexapro, Amlodipine, Chief Complaint Shortness of breath Disposition Transported No Lights/[place] Dispatch Reason Breathing Problem Transported To [facility] Narrative Arrived on scene to find our patient seated on a couch near the front door of the home. Patient stated that he had woken up that morning to trouble [address] [place] [address] EMS Patient Care Report Name: FERNANDA SALTER Room #: 210-P [facility] IN M.R.#: [id number] Admission: 10/21/21 Attend Phys: Bill Ponce MD Discharge: 10/23/21 Date of : 52 Report #: [id number] breathing. Patient stated it felt painful to breath and difficult to take a deep breath. Patient denied any history of COPD, asthma, or other respiratory issues. Patient stated he had lost his in March 2021 and was still mourning the loss. Patient denied any chest pain, n/v, diarrhea, or any previous history of shortness of breath similar to the occurrence today. Patient denied any feeling or sensation similar to his previous TN. Patient GCS15 upon our arrival, and breathing normally. Lung sounds auscultated to be clear bilaterally, room air SPO2 above 95% on room air. Vital signs obtained and patient transported and transferred to receiving facility without change in patient condition. Initial Vitals @07:13P: 105,CO: 2,SpO2: 96, @07:09P: 73,R: 16,BP: 239/138,Pain: 0/10,GCS: 15,Temp: 99.3F,Glucose: 127,SpO2: 100,Revised Trauma: 12, @07:15P: 99,R: 16,BP: 227/139,Pain: 0/10,GCS: 15,SpO2: 95,Revised Trauma: 12, Assessments @07:01MENTAL:Time Oriented,Person Oriented,Event Oriented,Place Oriented,SKIN:HEENT:Head/Face: No Abnormalities,Eyes: No Abnormalities,Neck/Airway: No Abnormalities,LUNG SOUNDS:Left Upper: No Abnormalities,Right Upper: No Abnormalities,Left Lower: No Abnormalities,Right Lower: No Abnormalities,ABDOMEN:Left Upper: No Abnormalities,Right Upper: No Abnormalities,Left Lower: No Abnormalities,Right Lower: No Abnormalities,PELVIS//GI:No Abnormalities,EXTREMITIES:Left Arm: No Abnormalities,Right Arm: No Abnormalities,Left Leg: No Abnormalities,Right Leg: No Abnormalities,PULSE:NEURO:No Abnormalities, Impression Anxiety reaction/Emotional upset Procedures @07:01 ALS Assessment Response: UnchangedSucceeded @07:09 3-Lead ECG Response: UnchangedSucceeded Timeline 06:52,Call Received 06:52,Dispatch Notified 06:53,Dispatched 06:54,En Route 07:00,On Scene 07:01,At Patient 07:01,ALS Assessment,Response: UnchangedSucceeded, 07:09,3-Lead ECG,Response: UnchangedSucceeded, 07:09,BP: 239/138 M,PULSE: 73,RR: 16 R,SPO2: 100 Ox,ETCO2: ,B,PAIN: [address] [address] EMS Patient Care Report Name: FERNANDA SALTER STEPHEN Room #: 210-P [facility] IN M.R.#: [id number] Admission: 10/21/21 Attend Phys: Bill Ponce MD Discharge: 10/23/21 Date of : 52 Report #: [id number],GCS: 15, 07:10,Depart Scene 07:13,BP: / M,PULSE: 105,RR: R,SPO2: 96 Ox,ETCO2: ,BG: ,PAIN: ,GCS: , 07:15,BP: 227/139 M,PULSE: 99,RR: 16 R,SPO2: 95 Ox,ETCO2: ,BG: ,PAIN: 0,GCS: 15, 07:21,At Destination 07:34,Call Closed Disclaimer v1.1 Copyright 2021 [employer] This EMS Care Summary contains data elements from the applicable legal record (which may be displayed differently). It is designed to provide pertinent information for the following purposes: continuity of care, clinical quality, and state data reporting. The complete legal record is available to ED staff and administrators of the receiving hospital in [employer]s Patient Tracker. All data is provided "as is."
[2021-10-21 07:34] VITALS: BP 210/134
[2021-10-21] MEDS ORDERED: ARTHRITIS PAIN100 GM TOP (07:42)
[2021-10-21 07:53] LABS: ABSOLUTE NEUTROPHILS 3.9 thou/uL (1.4-8.2); BASOPHILS 1.1 % (0.0-2.0); EOSINOPHILS 3.2 % (0.0-3.0); HEMATOCRIT 49.2 % (42.0-52.0); HEMOGLOBIN 16.3 gm/dL (14.0-18.0); LYMPHOCYTES 24.4 % (24.0-44.0); MCH 27.9 pg (26.0-34.0); MCHC 33.2 g/dL (28.0-37.0); MONOCYTES 7.7 % (1.0-8.0); PLATELET COUNT 239 thou/uL (150-400); POLYS 63.6 % (36.0-66.0); RBC 5.85 mil/uL (4.50-6.00); RDW 15.2 % (10.5-14.5); WBC 6.1 thou/uL (4.0-11.0)
[2021-10-21 07:58] LABS: CALCIUM 9.5 mg/dL (8.5-10.1); CREATININE 1.6 mg/dL (0.7-1.3); POTASSIUM 3.8 mmol/L (3.5-5.1)
--- NOTE | 2021-10-21 08:03 | EKG ---
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 : 1950 Requested By: Grady Haas Order Number: [id number] MD: Karl Potter Measurements Intervals [place] Rate: 89 P: 57 TN: 239 QRS: 58 QRSD: 93 T: 259 QT: 417 QTc: 508 Interpretive Statements Sinus rhythm Prolonged TN interval Consider left ventricular hypertrophy Compared to ECG 01/08/2021 07:47:42 Left ventricular hypertrophy now present Q waves now present T-wave abnormality now present Electronically Signed On 10-21-2021 8:02:53 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
[2021-10-21 08:09] LABS: ALBUMIN 3.9 g/dL (3.4-5.0); TOTAL BILIRUBIN 1.9 mg/dL (0.2-1.0); TOTAL PROTEIN 7.6 g/dL (6.4-8.2)
[2021-10-21 12:05] VITALS: BP 183/90
[2021-10-21 12:33] VITALS: BP 164/97
--- NOTE | 2021-10-21 13:45 | NUR ---
TOOK OVER CARE OF THIS PATIENT AT 1300; REPORT RECEIVED FROM CATARINO IN ER. PT AXOX4; ANSWERS QUESTIONS APPROPRIATLEY. PT REPORTS RECENT LOSS OF HIS ; REPORTS FEELINGS OF DEPRESSION WELL SIGNIFICANT WEIGHT LOSS. PT DENIES ANY CHEST PAIN AND SOA; PT ON ROOM AIR. PT AMBULATED TO BED X1 ASSIST. VSS. FALL PRECAUTIONS IN PLACE AND CALL LIGHT WITHIN REACH.
[2021-10-21 19:02] VITALS: BP 125/58
[2021-10-21 23:44] VITALS: BP 137/68
[2021-10-22 02:59] VITALS: BP 156/84
--- NOTE | 2021-10-22 03:34 | NUR ---
PT IS ALERT AND ORIENTED X4. LUNGS ARE CLEAR. ON ROOM AIR. ABOMEN IS SOFT AND BOWEL SOUNDS ACTIVE. PT WAS TEARY EYED WHEN I WENT TO DO HIS ASSESSMENT ASKED HIM WHAT WAS WRONG AND HE TOLD ME HIS HAD PASSED AND HE IS SAD. JUST OFFERED SUPPORT AND LISTENING TO HIM HE SPOKE OF HIS . NO EDMA NOTED. BLOOD PRESSURE STABLE. CALL LIGHT WITHIN REACH IF NEEDS ASSISTANCE PER NURSING.
[2021-10-22 07:16] VITALS: BP 155/78
[2021-10-22 11:10] VITALS: BP 163/82
[2021-10-22 12:18] LABS: HEMATOCRIT 42.6 % (42.0-52.0); MCH 27.6 pg (26.0-34.0); MCHC 32.4 g/dL (28.0-37.0); MCV 84.9 fL (80.0-100.0); RBC 5.01 mil/uL (4.50-6.00); RDW 15.5 % (10.5-14.5); WBC 5.2 thou/uL (4.0-11.0)
[2021-10-22 12:31] LABS: HEMOGLOBIN 13.8 gm/dL (14.0-18.0)
[2021-10-22 12:32] LABS: CALCIUM 8.7 mg/dL (8.5-10.1); CREATININE 1.7 mg/dL (0.7-1.3); MAGNESIUM 1.9 mg/dL (1.8-2.4); POTASSIUM 4.1 mmol/L (3.5-5.1)
[2021-10-22 15:01] VITALS: BP 134/73
[2021-10-22 19:51] VITALS: BP 137/88
[2021-10-23 03:04] LABS: HEMATOCRIT 41.2 % (42.0-52.0); HEMOGLOBIN 13.8 gm/dL (14.0-18.0); MCH 28.2 pg (26.0-34.0); MCHC 33.4 g/dL (28.0-37.0); MCV 84.3 fL (80.0-100.0); RBC 4.89 mil/uL (4.50-6.00); WBC 5.4 thou/uL (4.0-11.0)
[2021-10-23 03:16] LABS: CALCIUM 8.5 mg/dL (8.5-10.1); CREATININE 1.8 mg/dL (0.7-1.3); MAGNESIUM 1.8 mg/dL (1.8-2.4)
--- NOTE | 2021-10-23 03:27 | NUR ---
Assumed pt care at 1900. Pt is alert and oriented. No sign of distress noted in pt. Pt is stable. Denies pain. Fall precaution in place. Assessment completed and documented. Scheduled meds administered to pt. No acute event during the night. Continue to monitor. No further needs at this time.
[2021-10-23 03:36] VITALS: BP 155/91
[2021-10-23 07:28] VITALS: BP 142/77
[2021-10-23 11:30] VITALS: BP 114/60
[2021-10-23] MEDS ORDERED: PROAIR HFA8.5 GM INH (12:53)
[2021-10-23 14:29] VITALS: BP 114/60
--- NOTE | 2021-10-23 15:01 | NUR ---
ASSUMED CARE OF PATIENT AT 0700. PATIENT REMAINED A&O THROUGHOUT THE DAY, SLEEPING AT TIMES. PATIENT TO [place] WITH SELF CARE, LIVES WITH SON. CAB VOUCHER OBTAINED FOR TRANSPORTATION. IV AND TELE PACK REMOVED BY TECH. PATIENT PROGRESSED TOWARD TO POC.
== END 2021-10-23 17:05 | disposition home or self-care (01) | DRG 304 ==
LOC: ER 07:23 → 2N 09:43 → EROBS 09:43 → 2N 12:34
PROVIDERS: Emergency Medicine; Internal Medicine; ADMIT Internal Medicine; ATTEND Internal Medicine
DX: I16.0 Hypertensive urgency (principal); I50.21 Acute systolic (congestive) heart failure; R77.8 Other specified abnormalities of plasma proteins; Z20.822 Contact with and (suspected) exposure to COVID-19; I10 Essential (primary) hypertension; N18.30 Chronic kidney disease, stage 3 unspecified; E78.5 Hyperlipidemia, unspecified; E11.22 Type 2 diabetes mellitus with diabetic chronic kidney disease; Z96.651 Presence of right artificial knee joint; I25.10 Atherosclerotic heart disease of native coronary artery without angina pectoris; E78.00 Pure hypercholesterolemia, unspecified; E11.51 Type 2 diabetes mellitus with diabetic peripheral angiopathy without gangrene; I12.9 Hypertensive chronic kidney disease with stage 1 through stage 4 chronic kidney disease, or unspecified chronic kidney disease; G47.33 Obstructive sleep apnea (adult) (pediatric); F41.1 Generalized anxiety disorder; I25.2 Old myocardial infarction; Z95.5 Presence of coronary angioplasty implant and graft; Z90.5 Acquired absence of kidney; Z95.1 Presence of aortocoronary bypass graft; Z90.49 Acquired absence of other specified parts of digestive tract; Z88.2 Allergy status to sulfonamides; Z88.7 Allergy status to serum and vaccine
CPT/HCPCS: 10081

== ENCOUNTER → 2021-11-07 | Outpatient (CLI) | payer OTHER ==
[~2021-11-07] MED LIST changes: +ARTHRITIS PAIN100 GM TOP; +PROAIR HFA8.5 GM INH
== END ==
LOC: SJCVC 11:07
PROVIDERS: ATTEND Internal Medicine Cardiovascular Disease
DX: R00.1 Bradycardia, unspecified (principal); I25.10 Atherosclerotic heart disease of native coronary artery without angina pectoris; I70.90 Unspecified atherosclerosis; R55 Syncope and collapse; E78.00 Pure hypercholesterolemia, unspecified; I45.10 Unspecified right bundle-branch block; I10 Essential (primary) hypertension; Z88.0 Allergy status to penicillin; Z88.2 Allergy status to sulfonamides; Z88.8 Allergy status to other drugs, medicaments and biological substances; Z79.82 Long term (current) use of aspirin; Z79.899 Other long term (current) drug therapy; Z72.89 Other problems related to lifestyle; Z82.49 Family history of ischemic heart disease and other diseases of the circulatory system